=== PATIENT | female | born 1960 | race Caucasian/White ===

== ENCOUNTER 2016-07-31 15:21 | Emergency (ER) | payer OTHER ==
[~2016-07-31] VITALS: Ht 167.6 cm; Wt 140.3 kg
[2016-07-31 15:25] VITALS: BP 141/89; PULSE 84; RESP 18; O2SAT 98
[2016-07-31] MEDS ORDERED: FLUT12AE8 IH (15:31)
[2016-07-31] MEDS ORDERED: CYCL10TA9 PO (15:31)
[2016-07-31] MEDS ORDERED: CETI5TAB28 PO (15:31)
[2016-07-31] MEDS ORDERED: CITA40TA13 PO (15:31)
[2016-07-31] MEDS ORDERED: PANT40TA3 PO (15:31)
[2016-07-31] MEDS ORDERED: METH750T3 PO (15:31)
[2016-07-31] MEDS ORDERED: IMI100 PO (15:31)
[2016-07-31] MEDS ORDERED: GABA600T2 PO ×2 (15:31)
[2016-07-31] MEDS ORDERED: PRAM0.252 PO (15:31)
[2016-07-31] MEDS ORDERED: ALBU18HF INH (15:31)
[2016-07-31] MEDS ORDERED: NABU500T PO (15:31)
[2016-07-31 15:50] LABS: BASOPHILS % (AUTO) 0.3 % (0-3); EOSINOPHILS % (AUTO) 2.1 % (0-5); MONOCYTES % (AUTO) 10.2 % (4-12); Mean Corpuscular Hemoglobin 29.1 pg (27.0-35.0); Mean Corpuscular Volume 89.7 fL (81-100); NEUTROPHILS % (AUTO) 62.5 % (40-74); Platelet Count 236 bil/L (150-400)
--- NOTE | 2016-07-31 15:56 | ED.REPORT ---
HPI-Chest Pain 40 and Over Date of Service Jul 31, 2016 ED Provider: Vipul Toure MD Pt is a 56 female w/ a hx of GERD presenting to the ED c/o substernal CP onset about 2 hours prior to arrival. The patient was quilting and began to develop chest pain with radiation to the neck and throat and got up to walk around and her pain was relieved. She then took Pepto Bismal with complete pain relief. Pt c/o associated acid reflux sensation. She denies any history of CAD, HTN, hyperlipidemia, CHF. She denies any recent long periods of immobilization, unilateral lower extremity swelling or pain. Pt denies SOB, cough, fever, chills , abdominal pain, nausea, vomiting, diaphoresis. She notices that the symptoms are worse when she lays flat and relieved by sitting up causing her to sometimes sleep in a recliner chair. Nursing Notes Stated Complaint: CHEST PAIN Chief Complaint: Chest Pain Nursing Notes Reviewed: Yes Allergies: Coded Allergies: No Known Allergies (Unverified , 07/31/16) Scheduled Cetirizine (Cetirizine) 5 Mg Tablet 10 MG PO HS Citalopram (Citalopram) 40 Mg Tablet 40 MG PO DAILY Fluticasone Propionate (Flovent HFA 110 mcg) 12 Gm Aer.w.adap 2 PUFFS IH BID Gabapentin (Gabapentin) 600 Mg Tablet 1,200 MG PO am Gabapentin (Gabapentin) 600 Mg Tablet 1,800 MG PO HS Pantoprazole DR (Pantoprazole DR) 40 Mg Tablet.dr 40 MG PO am Pramipexole Dihydrochloride (Mirapex) 0.25 Mg Tablet 0.25 MG PO before bedtime Scheduled PRN Albuterol Sulfate (Ventolin HFA Inhaler) 200 Puff/18 Gm Inhaler 2 PUFF INH q4- 6hr PRN PRN For Wheezing Cyclobenzaprine (Cyclobenzaprine) 10 Mg Tablet 5-10 MG PO DAILY PRN PRN Spasm Methocarbamol (Methocarbamol) 750 Mg Tablet 750 MG PO q8hr PRN PRN For Spasm Nabumetone (Nabumetone) 500 Mg Tablet 500 MG PO BID PRN PRN joint pain Sumatriptan (Imitrex) 100 Mg Tablet 100 MG PO prn PRN PRN Headache General Time Seen by MD: 15:50 Chief Complaint Chest pain Hx Obtained From: Patient Arrived By: Walk-in Sudden in Onset?: Yes Onset Occurred: 1 - 4 hours ago Symptom Duration: Since onset Location: : Substernal Quality: Painful, Pressure Radiation: : Arm left Migration/Movement: Reports: None Severity: Current: Mild Severity: Maximum: Moderate Past Medical History Past Medical History Sleep apnea-CPAP GERD Reports: Asthma Past Surgical History none reported Smoking History Never Smoker Social History Alcohol Use: Denies alcohol use Drug Use: Denies drug use Review of Systems Review of Systems Note: +acid reflux Constitutional: Denies: Chills, Fever Respiratory: Denies: Non-productive cough, Shortness of breath Cardiovascular: Reports: Chest pain, Denies: Dyspnea on exertion, Edema, Palpitations GI: Denies: Abdominal pain, Bloody/tarry stool, Diarrhea, Nausea, Vomiting Musculoskeletal: Reports: Extremity pain Complete sys rev & neg: except as marked. Physical Exam Initial Vital Signs Vital Signs (First) Date Time Temp Pulse Resp B/P Pulse Ox O2 Delivery O2 Flow Rate FiO2 07/31/16 15:25 36.4 84 18 141/89 98 Room Air Initial VS: Reviewed, Vital signs normal Head / Eyes: Atraumatic, Normocephalic, PERRL ENT: Mucous membranes moist, Conjunctiva normal, No scleral icterus Neck: Supple, Full range of motion Extremities: Vascular intact, Neuro intact, No swelling, No tenderness Neurologic: Alert, Oriented, Nonfocal Psychiatric: Mood/affect normal, Behavior normal, Normal thought content General/Constitutional: Awake, Alert, No acute distress, Well appearing, Cooperative, Not toxic appearing Respiratory / Chest: Atraumatic, Breath sounds NL, Breath sounds = bilat, No respiratory distress, No rales, No rhonchi, No wheezing, No retractions, No stridor, No chest tenderness, No chest wall deformity, No crepitus Cardiovascular: Heart rate NL, Regular rhythm, Heart sounds NL, No gallop, No murmurs, No rubs, Cap refill not delayed, Peripheral circulation NL Abdomen: Atraumatic, Soft, No guarding, No rebound, No distention, No palpable mass Tenderness/Guarding/Rebound: Positive: Tender epigastric (very mild), Negative: Villegas's sign positive Interpretation & Diagnostics Lab Results Interpretation Result Diagram: 07/31/16 1540 07/31/16 1540 Test 07/31/16 15:40 07/31/16 15:50 White Blood Count 6.2th/mm3 (3.8-10.1) Red Blood Count 4.77mil/mm3 (3.90-5.20) Hemoglobin 13.9g/dL (12.0-15.6) Hematocrit 42.8% (35.0-46.0) Mean Corpuscular Volume 89.7fL (81-100) Mean Corpuscular Hemoglobin 29.1pg (27.0-35.0) Mean Corpuscular Hemoglobin Concent 32.5% (32.0-37.0) Red Cell Distribution Width 14.2% (12.3-15.4) Platelet Count 236bil/L (150-400) Neutrophils (%) (Auto) 62.5% (40-74) Lymphocytes (%) (Auto) 24.6% (14-46) Monocytes (%) (Auto) 10.2% (4-12) Eosinophils (%) (Auto) 2.1% (0-5) Basophils (%) (Auto) 0.3% (0-3) Sodium Level 137mEq/L (134-144) Potassium Level 4.5mEq/L (3.5-5.2) Chloride Level 101mEq/L (97-108) Carbon Dioxide Level 24mmol/L (18-29) Blood Urea Nitrogen 12mg/dL (6-24) Creatinine 0.93mg/dL (0.57-1.00) Estimat Glomerular Filtration Rate 89mL/min (>59) Glucose Level 111mg/dL (60-99) Calcium Level 8.9mg/dL (8.5-10.1) Magnesium Level 2.3mg/dL (1.6-2.6) Total Bilirubin 0.2mg/dL (0.0-1.2) Aspartate Amino Transf (AST/SGOT) 24U/L (0-50) Alanine Aminotransferase (ALT/SGPT) 29U/L (0-32) Alkaline Phosphatase 138U/L (25-150) Troponin T < 0.010ug/L (0.0-0.011) Total Protein 7.2g/dL (6.4-8.4) Albumin 4.2g/dL (3.4-5.0) Hold Aquino Top Tube Received (Received) Hold Urine Received (Received) ECG Interpretation Time: 16:04 Interpreted by: ED physician Normal ECG Interpretation: Normal ECG w/ rate of... (84), Normal rate, Normal sinus rhythm, No acute ischemic changes, Normal QRS, Normal axis, Normal intervals, Adequate tracing X-Ray Chest Interpretation Chest Xray Interpretation: IMPRESSION: No acute cardiopulmonary disease. Dictated by: Louis Alexander RRA Interpreted: Marleni Garcia MD on 07/31/2016 at 16:13 Transcribed by: MANJIT on 07/31/2016 at 16:13 View: Portable, 1 view Interpretation / Wet Read by: Interpret - Radiologist Re-Eval/Medical Decision Med Decision/Clinical Course Pt is a 56 female w/ a hx of GERD presenting to the ED c/o substernal CP onset about 2 hours prior to arrival. The patient was quilting and began to develop chest pain with radiation to the neck and throat and got up to walk around and her pain was relieved. She then took Pepto Bismal with complete pain relief. Pt c/o associated acid reflux sensation. She denies any history of CAD, HTN, hyperlipidemia, CHF. She denies any recent long periods of immobilization, unilateral lower extremity swelling or pain. Pt denies SOB, cough, fever, chills , abdominal pain, nausea, vomiting, diaphoresis. She notices that the symptoms are worse when she lays flat and relieved by sitting up causing her to sometimes sleep in a recliner chair. EKG was obtained and interpreted by myself as documented above. CXR: Obtained, reviewed and interpreted by myself shows no evidence of acute infiltrates, effusions or pneumothorax. Cardiac and mediastinal silhouette normal. No bony or soft tissue abnormalities. Labs notable as below: CBC: Unremarkable CMP: Unremarkable Troponin: negative Symptoms resolved here in the emergency department without intervention. Overall presentation most consistent with GERD. Palpation is 56 years old she is relatively low risk for acute coronary syndrome and the nature of her presentation is unconvincing thereof. Initial screening EKG and troponin are reassuring. Presentation not suggestive of pulmonary embolism and equal examination reveals no findings suggestive of DVT. Chest x-ray reveals no focal elevation or pneumothorax. At this time, I feel the patient is appropriate for discharge home. Patient has been advised to make lifestyle modifications and avoid nonsteroidal anti-inflammatory drugs. She will continue to take pantoprazole which has been previously prescribed and follow up closely with her primary care physician. Follow precautions were reviewed in detail and she was discharged in good condition. Time of Eval: 16:45 Re-Evaluation/Progress Note: Pt rechecked. Informed pt of plan for treatment. Pt understands and agrees with plan for treatment. F/U instructions and RTER warnings given. All questions addressed. Counseled Regarding: Diagnosis, Lab results, Need for follow-up, When/why to return to ED Discharge & Departure Primary Impression: Non-cardiac chest pain Additional Impression: Acid reflux Esophagitis presence: esophagitis presence not specified Qualified Code: K21.9 - Gastro-esophageal reflux disease without esophagitis Disposition: Home Discharge Condition All VS Reviewed: Yes Condition: Stable Patient Instructions: Chest Pain (ED) Additional Instructions: Thank you for seeking care at the emergency room. It is difficult for us to make definitive diagnoses in the ED but we believe that you are experiencing acid reflux Our primary goal today in the ED was to evaluate you for any life-threatening conditions. Your evaluation was reassuring. Your labs, EKG, and chest x-ray were normal. Continue your prescription of Pantoprazole. Avoid eating 2-3 hours prior to bedtime. Avoid NSAIDS or alcohol. You should follow-up with your primary doctor in the next week. You should return to the ED immediately if you develop persistent or increased chest pain, profuse sweating, fevers, vomiting, cough, shortness of breath, lightheadedness, weakness or any other concerning signs or symptoms. Thank you for letting us partake in your care today. Referrals: Sharee Syed MD (PCP) Scribe Attestation Portions of this note were transcribed by Peter Rodríguez. I, Dr. Toure personally performed the history, physical exam and medical decision-making; I reviewed and confirmed the accuracy of the information in the transcribed note. Signed by Irno Sam, 07/31/16 - 1700 copies to: Sharee Syed MD, Beck O MD Jul 31, 2016 15:56 PETER RODRÍGUEZ Jul 31, 2016 16:01
--- NOTE | 2016-07-31 16:13 | DRSVH ---
PROCEDURE: X-RAY CHEST ONE VIEW, PORTABLE ([id number]) INDICATIONS: CHEST PAIN TECHNIQUE: One view of the chest was acquired. COMPARISON: None. FINDINGS: Surgical changes and devices: None. Lungs and pleura: No pleural effusions or pneumothorax. Lungs are clear. Mediastinum: Mediastinal contours appear normal. Heart size is normal. Bones and chest wall: No suspicious bony lesions. Overlying soft tissues appear unremarkable. IMPRESSION: No acute cardiopulmonary disease. Dictated by: Louis Alexander [facility] Interpreted: Marleni Garcia MD on 07/31/2016 at 16:13 Transcribed by: MANJIT on 07/31/2016 at 16:13 Approved by: Marleni Garcia MD, PhD on 07/31/2016 at 17:36
[2016-07-31 16:18] LABS: TROPONIN T < 0.010 ug/L (0.0-0.011)
[2016-07-31 16:23] LABS: Magnesium 2.3 mg/dL (1.6-2.6)
[2016-07-31 17:38] VITALS: BP 158/89; PULSE 84; RESP 22; O2SAT 100
== END 2016-07-31 17:35 | disposition home or self-care (01) ==
LOC: SED 15:21
DX: R07.2 Precordial pain (principal); K21.9 Gastro-esophageal reflux disease without esophagitis; J45.909 Unspecified asthma, uncomplicated

== ENCOUNTER 2016-09-09 12:00 | Emergency (ER) | payer OTHER ==
[~2016-09-09] VITALS: Ht 167.6 cm; Wt 137.3 kg
[~2016-09-09 12:00] MED LIST: ALBU18HF INH; CETI5TAB28 PO; CITA40TA13 PO; CYCL10TA9 PO; FLUT12AE8 IH; GABA600T2 PO; IMI100 PO; METH750T3 PO; NABU500T PO; PANT40TA3 PO; PRAM0.252 PO
[2016-09-09 12:10] VITALS: BP 140/78; PULSE 86; RESP 16; O2SAT 99
--- NOTE | 2016-09-09 14:39 | ED.REPORT ---
HPI-Back Pain 40 and Over Date of Service Sep 09, 2016 ED Provider: Tony Segal PA-C Carri is a 56-year-old female with a history of back pain since with a chief complaint of back and right knee pain. Patient reports that approximately 2 weeks ago she was traveling in [place]. She got out of the car and felt pain in her right knee immediately followed by pain in her lower back shortly after that incident she felt severe pain in her lower back as she bent over to open a suitcase. The pain was bad enough she states that she lost control of her bladder. She was seen in [place] and given pain medication and cyclobenzaprine. Upon returning to [place] she saw Dr. Chow who presents pain medication as well as advised x-rays. The patient states that she fell her back pain was improving and did not get the x-rays. Patient noted increasing pain in her right leg beginning of the day yesterday which is worse in the point where she is unable to bear weight or straighten the leg. Patient describes pain in her lateral thigh when this is attempted. Denies numbness, tingling, weakness in lower extremity. Denies fever, DM, HIV, organ transplant, immunosuppression, recent surgery, recent infection, history of back surgery, surgical implants, cancer and IV drug use. Denies bowel/bladder dysfunction and saddle anesthesia. Nursing Notes Stated Complaint: BACK/RIGHT KNEE INJURY Chief Complaint: Back Pain or Injury Nursing Notes Reviewed: Yes Allergies: Coded Allergies: No Known Allergies (Unverified , 07/31/16) Scheduled Cetirizine (Cetirizine) 5 Mg Tablet 10 MG PO HS Citalopram (Citalopram) 40 Mg Tablet 40 MG PO DAILY Fluticasone Propionate (Flovent HFA 110 mcg) 12 Gm Aer.w.adap 2 PUFFS IH BID Gabapentin (Gabapentin) 600 Mg Tablet 1,200 MG PO am Gabapentin (Gabapentin) 600 Mg Tablet 1,800 MG PO HS Pantoprazole DR (Pantoprazole DR) 40 Mg Tablet.dr 40 MG PO am Pramipexole Dihydrochloride (Mirapex) 0.25 Mg Tablet 0.25 MG PO before bedtime Prednisone (PredniSONE) 20 Mg Tablet 40 MG PO DAILY Scheduled PRN Albuterol Sulfate (Ventolin HFA Inhaler) 200 Puff/18 Gm Inhaler 2 PUFF INH q4- 6hr PRN PRN For Wheezing Cyclobenzaprine (Cyclobenzaprine) 10 Mg Tablet 5-10 MG PO DAILY PRN PRN Spasm Hydrocodone-Acetaminophen 5-325 mg (Hydrocodone-Acetaminophen 5-325 mg) 1 Each Tablet 1 TABLET PO Q4H PRN PRN For Pain Methocarbamol (Methocarbamol) 750 Mg Tablet 750 MG PO q8hr PRN PRN For Spasm Nabumetone (Nabumetone) 500 Mg Tablet 500 MG PO BID PRN PRN joint pain Sumatriptan (Imitrex) 100 Mg Tablet 100 MG PO prn PRN PRN Headache General Time Seen by MD: 14:16 Chief Complaint Back pain Sudden in Onset?: Yes Past Medical History Past Medical History Sleep apnea-CPAP GERD Reports: Asthma Past Surgical History none reported Smoking History Never Smoker Social History Alcohol Use: Denies alcohol use Drug Use: Denies drug use Review of Systems Review of Systems Note: Negative unless stated otherwise in history of present illness Physical Exam General: Well appearing, well developed, morbidly obese, mild distress. Patient appears uncomfortable on the gurney. Head: Atraumatic, normocephalic. Eyes: No scleral icterus or injection. No discharge. Vision grossly intact. ENT: Voice clear, hearing grossly intact. Respiratory: Regular rate and rhythm. Breath sounds present, clear to auscultation and equal bilaterally. No respiratory distress. No increased work of breathing, speaks in complete sentences. Cardiovascular: Regular rate and rhythm, without murmur, gallop or rub. No pedal edema. Gastrointestinal: Abdomen flat and non-tender without guarding or rebound. Bowel sounds normoactive. Skin: Warm and dry. Right knee: Normal inspection. Range of motion limited to 160 extension. Mild lateral joint line tenderness. Negative patellar tenderness, tibial tuberosity tenderness, medial joint line tenderness. Back: Normal to inspection. Negative midline spinous process tenderness. Mild right SI tenderness. Examination limited by body habitus. Neurological: Hip flexion, knee extension, ankle dorsiflexion and plantarflexion strength 5/5 B/L. Patellar and Achilles reflexes present and equal B/L. Sensation to sharp touch intact at medial leg, dorsal foot and lateral foot B/L. negative seated straight leg raise, negative seated cross straight leg raise. Psychological: Alert and oriented. Speech appropriate, linear and logical. Behavior appropriate. Initial Vital Signs Vital Signs (First) Date Time Temp Pulse Resp B/P Pulse Ox O2 Delivery O2 Flow Rate FiO2 09/09/16 12:10 36.5 86 16 140/78 99 09/09/16 16:21 Room Air Initial VS: Vital signs normal Interpretation & Diagnostics PROCEDURE: X-RAY RIGHT KNEE, THREE VIEWS ([id number]) INDICATIONS: back pain IMPRESSION: 1. Severe degenerative changes of the right knee. No fracture. 2. Intra-articular joint bodies. PROCEDURE: X-RAY LUMBAR SPINE, 2 OR 3 VIEW INDICATIONS: back pain IMPRESSION: 1. Osteopenia of the lumbar spine without acute fracture. 2. Moderate multilevel degenerative changes of the lumbar spine are primarily evident involving the lower lumbar facet joints. Re-Eval/Medical Decision Med Decision/Clinical Course 48-year-old woman presents complaining of low back and right knee pain that began while traveling in [place] approximately 2 weeks ago. Seen by PCP upon return and prescribe pain medications. Advised x-ray which was not completed. It has worsened in the last 2 days, she does not feel able to bear weight on the leg. Neurological examination is normal. Patient was extremely heavy which I felt limited my ability to assess her knee and lower back. For that reason I ordered X-rays of lumbar spine and right knee which reveal arthritic changes but no acute injury. No red flag signs or symptoms for cauda equina, epidural abscess, epidural hematoma, cancer or trauma. This is low back pain with radiculopathy. Eyes [id number] analgesia, provided small amount of hydrocodone/APAP to supplement as well as a prescription for prednisone. Advised Primary care follow-up, provided emergency return precautions. Patient verbalizes understanding and consented to the plan. Discharge & Departure Impression: Primary Impression: Low back pain Chronicity: acute Back pain laterality: right Sciatica presence: with sciatica Sciatica laterality: sciatica of right side Qualified Code: M54.41 - Lumbago with sciatica, right side Disposition: Home Discharge Condition All VS Reviewed: Yes Condition: Stable Patient Instructions: Acute Low Back Pain (ED) Additional Instructions: Evaluation in the emergency department for lower back pain. History and physical are reassuring for emergent neurological condition such as epidural abscess or cauda equina syndrome. History does not suggest that this is likely to be a spinal fracture. Your neurological examination is normal, indicating there is no damage to the nerves in your back. X-rays of both her back and your knee reveal arthritic changes but no fractures. Treatment is largely symptomatic. Rest is important, especially for the next couple of days, but avoid total bed rest. Reasonable activity as tolerated is the best. Apply ice to the affected area 4 times a day for 20 minutes over the next 24 hours. After that you will probably find warm compresses most helpful. The pain is best treated with 800 mg of ibuprofen (Advil, Motrin) every 6 hours , or 1000 mg of acetaminophen (Tylenol) every 6 hours. These drugs can be taken at the same time for more severe pain. I will write a prescription for a small amount of hydrocodone/acetaminophen 5 mg /325 mg. You can substitute these for the acetaminophen for more severe pain. Do not take acetaminophen (Tylenol) with these pills. Please not drive or drink alcohol within 4 hours of taking these pills. I will also write a prescription for short course of prednisone. This should reduce the inflammation around the affected nerves and makes your leg feel better. Please take prednisone 40 mg once a day for 5 days. Most of all be patient: 70-90% of people with injuries presenting like yours will resolve within 7 weeks, even without treatment. Follow-up with your primary care provider in the next week or so to be sure your recovery is progressing as expected. Return the emergency department for new or worsening symptoms such as loss of bowel/bladder control, numbness between your legs, new weakness/numbness or high fever. Referrals: Sharee Syed MD (PCP) EDSupervising Provider for APC: Porfirio Melendez MD copies to: Sharee Syed MD, Seth PA-C Sep 09, 2016 14:39
[2016-09-09] MEDS ORDERED: HYDROcodone-APAP 5-325 mg Tablet PO ONE (14:40)
--- NOTE | 2016-09-09 15:37 | DRSVH ---
PROCEDURE: X-RAY LUMBAR SPINE, 2 OR 3 VIEW INDICATIONS: back pain TECHNIQUE: 3 views of the lumbar spine were acquired. COMPARISON: [facility], , SPINE LUMB 2 OR 3VW, 02/07/2014, 13:07. FINDINGS: Bones: There are 5 lumbar-type vertebral bodies. The lowest intervertebral disk space is designated a s L5-S1. The vertebral body heights are well-maintained without evidence to suggest an acute compress ion fracture. The bone mineralization is slightly decreased. Grade 1 anterolisthesis of L4 and L5 is again evident, measuring approximately 5 mm, not significantl y progressed. No definite additional areas of significant spondylolisthesis are evident. Moderate m ultilevel degenerative changes of the lumbar spine are primarily evident involving the lower lumbar f acet joints. Multifocal areas of mild disc height loss are present. Degenerative changes of the sac roiliac joints are present. Soft tissues: Clips are present within the upper abdomen. The previously seen intrauterine contracep tive device has been removed in the interim. soft tissues of the imaged abdomen and pelvis are withi n normal limits. IMPRESSION: 1. Osteopenia of the lumbar spine without acute fracture. 2. Moderate multilevel degenerative changes of the lumbar spine are primarily evident involving the lower lumbar facet joints. Dictated by: Norman Bishop M.D. on 09/09/2016 at 14:33 Approved by: Norman Bishop M.D. on 09/09/2016 at 14:35
--- NOTE | 2016-09-09 15:39 | DRSVH ---
PROCEDURE: X-RAY RIGHT KNEE, THREE VIEWS ([id number]) INDICATIONS: back pain TECHNIQUE: 4 views of the knee were acquired. COMPARISON: None. FINDINGS: Bones: No fractures or dislocations. No suspicious bony lesions. The bone mineralization is decrea sed. There are severe degenerative changes of the patellofemoral compartment with prominent joint sp hari narrowing, lateral patellar subluxation, subchondral sclerosis, and a developing marginal osteoph ytes. Mild degenerative changes within the medial and lateral tibiofemoral compartments are present. Soft tissues: No joint effusion. There is a suprapatellar joint body. No suspicious soft tissue ca lcifications. IMPRESSION: 1. Severe degenerative changes of the right knee. No fracture. 2. Intra-articular joint bodies. Dictated by: Norman Bishop M.D. on 09/09/2016 at 14:35 Approved by: Norman Bishop M.D. on 09/09/2016 at 14:37
[2016-09-09] MEDS ORDERED: PRE20 PO (15:59)
[2016-09-09] MEDS ORDERED: HYDR-4003 PO (15:59)
[2016-09-09 16:21] VITALS: BP 145/65; PULSE 91; RESP 14
== END 2016-09-09 16:23 | disposition home or self-care (01) ==
LOC: SED 12:00
DX: M54.41 Lumbago with sciatica, right side (principal); K21.9 Gastro-esophageal reflux disease without esophagitis; Z79.899 Other long term (current) drug therapy
CPT/HCPCS: 72100; 73562; 96372; 99284; J1885

== ENCOUNTER 2016-10-14 11:05 | Day surgery (SDC) | payer OTHER ==
[~2016-10-14] VITALS: Ht 166.4 cm; Wt 135.0 kg
[~2016-10-14 11:05] MED LIST changes: -ALBU18HF INH; -FLUT12AE8 IH; -GABA600T2 PO; -IMI100 PO; +Sodium Chloride LOK Flush 10 mL Syringe IV PRN; +fentaNYL-PF 50 mCg/mL 2 mL Inj IVPUSH PRN
[2016-10-14 11:23] VITALS: BP 149/101; PULSE 85; RESP 16; O2SAT 100
[2016-10-14] MEDS: 0.9% Sodium Chloride 1,000 ML IV SCH ×2 (12:21→13:13)
[2016-10-14 13:19] VITALS: BP 154/89; PULSE 84; RESP 16; O2SAT 100
[2016-10-14 13:29] VITALS: BP 163/82; PULSE 80; RESP 16; O2SAT 100
[2016-10-14 13:39] VITALS: BP 167/87; PULSE 80; RESP 16; O2SAT 97
--- NOTE | 2016-10-14 21:57 | ENDO ---
[address] [address] ENDOSCOPY PROCEDURE PATIENT: FLORENTINO GUERRERO : 1960 MR#: [id number] ADMIT: 10/14/2016 JOB ID: [id number] PRIMARY PROVIDER: Sharee Syed MD. PROCEDURE: Colonoscopy with hot snare polypectomy, saline injection, Shellie ink tattoo injection. INDICATIONS: A 56-year-old female with a personal history of adenomatous colon polyps. She had a large polyp that was attempted in 2007. Followup in 2010, no polyp was identified after an exhaustive search. The patient was recommended for a three-year followup, which would have been in May 2013. She is a little over three years overdue for that and returns for surveillance today. EQUIPMENT: PCF-H180 AL. SEDATION: 1. 5 mg Versed. 2. 100 mcg fentanyl. COMPLICATIONS: None identified. BOWEL PREPARATION: Fair. PROCEDURE INFORMATION: After the risks and benefits were explained, written and verbal informed consent was obtained, the patient was brought into the endoscopy suite and placed into the left lateral decubitus position. Sedation was achieved as above. A digital rectal examination was accomplished. Mild internal hemorrhoids appreciated. The scope was introduced into the rectum and advanced under direct visualization to the level of the cecum, as identified by the appendiceal orifice and ileocecal valve. The scope was slowly withdrawn to carefully examine the mucosa for any defects or lesions. Retroflexed views were accomplished in the rectum. The colon was decompressed, The scope removed from the patient who tolerated the procedure well. FINDINGS: There was a small polyp, perhaps 5-6 mm in the mid colon, some were likely in transverse, removed with hot snare. In the ascending colon, in the location that was previously described back in 2007, there was a superficial sessile spreading polyp on both the front and backside of a fold. This was perhaps about two folds from the ileocecal valve. The polyp would be in the 6 o'clock position with ileocecal valve in the 12 o'clock location. We could fairly easily get a Jumbo snare around the backside of this (up to maybe 2 cm in greatest dimension) polyp. This was fairly easily removed. However, on the front side of the fold, the polyp did not gather up with the jumbo snare. We swapped out for a hexagonal and even a stiff circular jumbo. None of these were sufficient to get the job done. We attempted to inject the central location of this polyp for lift. Only about 3 cc went in and lifted the left-hand side of the polyp, but the central region did not seem to want to come up at all. We again attempted to gather it with the jumbo snare but at this point our efforts were impeded by some increased motility and a change in the positioning of the fold from all of our efforts. We took one other chunk off of the right hand side of this lesion with this snare and submitted it altogether as ascending colon polyp. There was clearly a stellate region of polyp that still needs to be addressed. We additionally placed a 0.5 cc Shellie ink tattoo just distal and to the right of the lesion. Photographs were taken. ENDOSCOPIC DIAGNOSIS: 1. Very difficult ascending colon polyp, only partially removed. 2. Small transverse polyp. PLAN: 1. Await histopathology. 2. Repeat colonoscopy in a 60-minute slot in the next 3-4 months. 3. If we are once again not able to gather up any remnant adenomatous mucosa, it would be my inclination to attempt a comprehensive ablation of the area using APC.
--- NOTE | 2016-10-15 10:47 | PATH ---
SURGICAL PATHOLOGY Attending Physician:Brittani Syed CASE STATUS: Signed Out PATIENT NAME: FLORENTINO GUERRERO PID: [id number] : 1960 DATE COLLECTED:10/14/2016 21:35 SPECIMEN: 1: Colon, Biopsy 2: Colon, Biopsy CLINICAL HISTORY: 1). ASCENDING COLON POLYP 2). COLON POLYP FINAL DIAGNOSIS: 1.ASCENDING COLON POLYP: TUBULAR ADENOMA, MULTIPLE FRAGMENTS. 2.COLON POLYP: TUBULAR ADENOMA. ICD10 D12.2 D12.6 GROSS DESCRIPTION: The specimen is received in two formalin filled containers labeled with the patient's name. 1). The specimen is sublabeled "ascending colon polyp" and consists of multiple portions of tissue which aggregate to 0.5 x 0.5 x 0.3 CM. The specimen is entirely submitted in cassette 1A. 2). The specimen is sublabeled "colon polyp" and consists of a 0.4 x 0.3 x 0.2 CM portion of tissue which is entirely submitted in cassette 2A. 10/14/2016 DAC MICRO DESCRIPTION: See diagnosis. ICD-9 CODES: CPT CODES: 1: 23923 2: 73508 Electronically Signed Out Liliya Anderson MD [facility] Pathology [facility] [address] [place] [address] Technical component performed at [facility], [facility] [address], [place], [address]
== END 2016-10-14 23:59 | disposition home or self-care (01) ==
LOC: END 11:05
PROVIDERS: ATTEND Internal Medicine Gastroenterology
DX: Z12.11 Encounter for screening for malignant neoplasm of colon (principal); D12.2 Benign neoplasm of ascending colon; D12.3 Benign neoplasm of transverse colon; K64.8 Other hemorrhoids; Z86.010 Personal history of colon polyps; K21.9 Gastro-esophageal reflux disease without esophagitis; G43.909 Migraine, unspecified, not intractable, without status migrainosus; G62.9 Polyneuropathy, unspecified; G47.00 Insomnia, unspecified; G47.30 Sleep apnea, unspecified; Z98.84 Bariatric surgery status; J45.909 Unspecified asthma, uncomplicated; F32.9 Major depressive disorder, single episode, unspecified; E66.9 Obesity, unspecified; Z68.42 Body mass index [BMI] 45.0-49.9, adult; Z79.51 Long term (current) use of inhaled steroids
CPT/HCPCS: 45381; 45385; 88305; 99153; G0500; J7030